=== PATIENT | female | born 1970 | race Caucasian/White ===

== ENCOUNTER 2016-09-18 09:48 | Emergency (ER) | payer OTHER ==
[~2016-09-18] VITALS: Ht 172.7 cm; Wt 84.0 kg
[~2016-09-18 09:48] MED LIST: AMBI10TA PO; ATEN1TAB73 PO; CORTIS10A LEFT EAR; CYCL-36 PO; IBUP800T23 PO; LOSA25TA31 PO; PRIS50TA PO; SOMA350T PO; TAB-TAB PO; TOPI50TA4 PO
[2016-09-18 09:51] VITALS: BP 177/99; PULSE 118; RESP 20; TEMP 97.8; O2SAT 100
[2016-09-18] MEDS ORDERED: PRIS50TA PO (10:13)
[2016-09-18] MEDS ORDERED: AMBI10TA PO (10:13)
[2016-09-18] MEDS ORDERED: MULTTAB67 PO (10:13)
[2016-09-18] MEDS ORDERED: SOMA350T PO (10:13)
[2016-09-18] MEDS ORDERED: DIVA250ER PO (10:13)
[2016-09-18] MEDS ORDERED: LOSA25TA PO (10:13)
[2016-09-18] MEDS ORDERED: CYCL1TAB29 PO (10:13)
[2016-09-18] MEDS ORDERED: ATEN25TA PO (10:13)
[2016-09-18] MEDS ORDERED: ERYTOIN10 EACH EYE (10:26)
--- NOTE | 2016-09-18 10:27 | PD ---
HPI Chief Complaint: Eye Problems/Injury Time Seen by Provider: 10:21 Travel History International Travel<30 days: No Contact w/Intl Traveler<30days: No Traveled to known affect area: No History of Present Illness HPI Patient is a 46-year-old female presenting to the emergency room for evaluation of pink eye. Patient states that she used [facility] on September 16 and was prescribed ciprofloxacin eyedrops. She reports improvement in the redness and caking of her eyes upon awakening, however she reports increased tearing and photophobia. Patient does not use contact lenses. Her eyes feel sandpapery. PFSH Past Medical History Cardiovascular Problems: Yes (HTN) Diminished Hearing: No Gastrointestinal Disorders: Yes (CELIAC DISEASE) Hypertension: Yes Migraines: Yes Tetanus Vaccination: > 5 Years ?: Not Past Surgical History Tonsillectomy: Yes Tympanostomy Tube: Yes Social History Alcohol Use: Yes Tobacco Use: No Substance Use: No Allergies-Medications (Allergen,Severity, Reaction): Coded Allergies: Penicillin (Unverified Allergy, Severe, Anaphylaxis, 09/18/16) Uncoded Allergies: CILLINS (Allergy, Severe, Anaphylaxis, 05/07/14) Reported Meds & Prescriptions Reported Meds & Active Scripts Active Erythromycin Opth Oint 5 Mg/Gm Oint 1 Applic EACH EYE QID Reported Depakote ER (Divalproex Sodium) 250 Mg Nia 250 Mg PO DAILY Soma (Carisoprodol) 350 Mg Tab 350 Mg PO BID PRN Flexeril (Cyclobenzaprine HCl) 10 Mg Tab 10 Mg PO TID PRN Atenolol 25 Mg Tab 25 Mg PO DAILY Pristiq 24 HR (Desvenlafaxine ER 24 HR) 50 Mg Tab 50 Mg PO DAILY Losartan (Losartan Potassium) 25 Mg Tab 25 Mg PO DAILY Multiple Vitamin 1 Tab 1 Tab PO DAILY Ambien (Zolpidem Tartrate) 10 Mg Tab 10 Mg PO HS PRN Review of Systems Except as stated in HPI: all other systems reviewed are Neg Eyes: Positive: Photophobia, Redness, Foreign Body Sensation (sand paper feeling), Tearing, No: Visual changes HENT: No: Headaches Physical Exam Narrative GENERAL: Well-nourished, well-developed patient. SKIN: Focused skin assessment warm/dry. HEAD: Normocephalic. EYES: No scleral icterus. Mild injection with clear drainage bilaterally, fluorescein exam is negative for abrasions, ulcerations, lesions. Extraocular movements are intact. NECK: Supple, trachea midline. No JVD or lymphadenopathy. CARDIOVASCULAR: Regular rate and rhythm without murmurs, gallops, or rubs. RESPIRATORY: Breath sounds equal bilaterally. No accessory muscle use. GASTROINTESTINAL: Abdomen soft, non-tender, nondistended. MUSCULOSKELETAL: No cyanosis, or edema. BACK: Nontender without obvious deformity. No CVA tenderness. Data Data Last Documented VS Vital Signs Date Time Temp Pulse Resp B/P Pulse Ox O2 Delivery O2 Flow Rate FiO2 09/18/16 09:51 97.8 118 20 177/99 100 Room Air [facility] Medical Decision Making Medical Screen Exam Complete: Yes Emergency Medical Condition: Yes Interpretation(s) Vital Signs Date Time Temp Pulse Resp B/P Pulse Ox O2 Delivery O2 Flow Rate FiO2 09/18/16 09:51 97.8 118 20 177/99 100 Room Air Differential Diagnosis Viral conjunctivitis versus bacterial conjunctivitis versus uveitis versus episcleritis versus other Narrative Course Patient is a 46-year-old female presenting to emergency Department for reevaluation of previously diagnosed pink eye. Physical examination appears most consistent with conjunctivitis, she will be given erythromycin ointment. Patient is encouraged follow-up with Dr. Sara Winslow, ophthalmology. She was tachycardic on arrival with a heart rate of 118, reassessed at 92 prior to discharge. Patient verbalized understanding of discharge instructions. Patient is stable for discharge. Diagnosis Primary Impression: Conjunctivitis of both eyes Qualified Code: H10.9 - Conjunctivitis of both eyes, unspecified conjunctivitis type Referrals: Ashley Winslow MD 1 day Call for an appointment Patient Instructions: Conjunctivitis (ED), General Instructions Departure Forms: Tests/Procedures, Work Release Enter return to work date: Sep 20, 2016 Special Instructions: Follow-up with ophthalmology Additional Instructions: Follow-up with Dr. Ashley Winslow ophthalmology. Use erythromycin ointment as directed Return to emergency department for any new or worsening symptoms Med/Other Pt SpecificInfo: Prescription(s) given Scripts Erythromycin Opth Oint 5 Mg/Gm Oint1 Applic EACH EYE QID #1 TUBE Ref 0 Prov:Oma Canada 09/18/16 Disposition: 01 DISCHARGE HOME Condition: Stable Oma Canada Sep 18, 2016 10:26
--- NOTE | 2016-09-18 10:32 | PD ---
Data Data Last Documented VS Vital Signs Date Time Temp Pulse Resp B/P Pulse Ox O2 Delivery O2 Flow Rate FiO2 09/18/16 09:51 97.8 118 20 177/99 100 Room Air MDM Supervised Visit with ISAIAS: Yes Narrative Course I, Dr. Moreno, have reviewed the advance practice practioner's documentation and am in agreement, met with the patient face to face, made the diagnosis, and the medical decision making was done by me. *My assessment and Findings: 46-year-old female here with complaint of red itchy eyes and foreign body sensation despite using home antibiotic eyedrops. She is a contact lens wearer but hasn't worn her contacts lens in approximately 3 months. On exam is consistent with conjunctivitis viral versus bacterial. We 'll treat with erythromycin ointment given her about failure and discharged home with outpatient ophthalmology follow-up. Encouraged lubricating eyedrops. Diagnosis Primary Impression: Conjunctivitis of both eyes Qualified Code: H10.9 - Conjunctivitis of both eyes, unspecified conjunctivitis type Referrals: Ashley Winslow MD 1 day Call for an appointment Patient Instructions: General Instructions, Conjunctivitis (ED) Departure Forms: Work Release, Enter return to work date: Special Instructions: Follow-up with ophthalmology Tests/Procedures Additional Instruction: Follow-up with Dr. Ashley Winslow ophthalmology. Use erythromycin ointment as directed Return to emergency department for any new or worsening symptoms Scripts Erythromycin Opth Oint 5 Mg/Gm Oint1 Applic EACH EYE QID #1 TUBE Ref 0 Prov:Oma Canada Shirin SYED 09/18/16 Disposition: 01 DISCHARGE HOME Condition: Stable Gisel Moreno MD Sep 18, 2016 10:32
== END 2016-09-18 10:34 | disposition home or self-care (01) ==
LOC: NED 09:48 → NEPD 10:34
DX: H10.023 Other mucopurulent conjunctivitis, bilateral (principal); I10 Essential (primary) hypertension
CPT/HCPCS: 99282